=== PATIENT | female | born 1960 | race Two or more races ===

== ENCOUNTER → 2023-03-25 06:30 | Day surgery (SDC) | payer BC, SELFPAY | LOC: GI 06:30 | PROVIDERS: ATTENDING PHYSICIAN Internal Medicine | DX: R13.10 Dysphagia, unspecified (principal); Q39.9 Congenital malformation of esophagus, unspecified; K31.89 Other diseases of stomach and duodenum; Z98.890 Other specified postprocedural states | CPT/HCPCS: 43249; 43239; 88305; 88342 ==

== ENCOUNTER → 2024-07-30 09:42 | Outpatient (REF) | payer MEDICARE, OTHER, SELFPAY | LOC: RAD 09:42 | PROVIDERS: ATTENDING PHYSICIAN Internal Medicine; FAMILY PHYSICIAN Internal Medicine | DX: R49.0 Dysphonia (principal); K21.9 Gastro-esophageal reflux disease without esophagitis | CPT/HCPCS: 74221; 74246 ==